=== PATIENT | female | born 1955 | race Caucasian/White ===

== ENCOUNTER 2016-09-20 10:59 | Day surgery (SDC) | payer BC ==
[~2016-09-20 10:59] MED LIST: RINGERS SOLUTION,LACTATED 1,000 ML IV PRN
--- OUTSIDE RECORDS SUMMARY | 2016-09-20 11:46 | XMS REPORT | Continuity of Care Document ---
:1955 Author Organization [facility] Address Unavailable [place] [id number] Care Team Providers Name Role Phone Unavailable Primary Care Provider Unavailable Source Comments This disclosure is being made pursuant to the [employer] program and maynot contain all information available regarding this patient.[facility] Active Allergies and Adverse Reactions No Known Allergies Current Medications Be aware that medications may not be up to date as of this document. Alwaysverify current medications with the patient. Prescription Sig. Disp. Refills Start Date End Date Status buPROPion (WELLBUTRIN) 75 Take 75 mg by mouth 0 08/05/2016 Active MG tablet 2 (two) times daily. meloxicam (MOBIC) 15 MG Take 1 tablet by 0 09/04/2016 Active tablet mouth daily. rosuvastatin (CRESTOR) 20 Take 20 mg by mouth Active MG tablet daily. Active Problems Problem Noted Date COPD (chronic obstructive pulmonary disease) (HCC) 09/07/2016 Most Recent Encounters Date Type Specialty Providers Description 09/07/2016 Abstract Family Medicine Coreen Stock, RN Social History Tobacco Use Types Packs/Day Years Used Date Never Assessed Plan of Care Date Type Specialty Providers Description 09/28/2016 Appointment Family Medicine Anish Eller Q, DO [address] [place] [address] [phone] (Fax) Health Maintenance Due Date Last Done Comments Pneumococcal Medium Risk 19-64 yo (1 of 1 - PPSV23) 1973 Tetanus/Pertussis (1 - Tdap) 1973 Pap Smear 10/16/1975 Colonoscopy 2004 Mammogram 2004 Well Adult Visit 2004 Zoster Vaccine 60+ 2014 Influenza Immunization (#1) 2015 Results from Last 3 Months Not on file
[2016-09-20] MEDS ORDERED: RINGERS SOLUTION,LACTATED 1,000 ML IV ONE (14:00)
[2016-09-20 14:53] VITALS: BP 140/85
[2016-09-20] MEDS ORDERED: RINGERS SOLUTION,LACTATED 1,000 ML IV PRN (14:54)
--- NOTE | 2016-09-20 19:25 | OR ---
Operative Report - Dictated Report Narrative: OPERATIVE REPORT DATE OF OPERATION: 09/20/2016 PREOPERATIVE DIAGNOSIS: No recent dedicated colon studies POSTOPERATIVE DIAGNOSIS: Severe diverticulosis OPERATION: Colonoscopy SURGEON: Tae Tse MD ANESTHESIA: SHAHEED Wheeler CRNA INDICATIONS FOR PROCEDURE: The patient is a 60-year-old female referred by Dr. Prakash. She was told she had a polyp on her first colon exam in 1999. She had significant diverticulosis but no polyps on a repeat exam in 2006. She has a tendency to constipation and is using a combination of fiber and MiraLAX. FINDINGS: Severe diverticulosis NARRATIVE OF PROCEDURE: The patient was identified in the holding area, and prior to the administration of anesthetic, a multidisciplinary timeout was observed. With the patient in the left lateral position and after the administration of intravenous sedation, the perineum was inspected. There was no evidence of pilonidal disease or skin breakdown. The external appearance of the anus was normal. Sphincter tone was good. The flexible fiberoptic colonoscope was inserted into the rectum which was insufflated with air. The rectal mucosa and submucosal vascular pattern appeared normal, the prep was seen to be complete. The scope was advanced through the sigmoid colon which contained numerous large non-impacted noninflamed diverticular openings. The scope was advanced up the descending colon, and around the splenic flexure where the triangular haustral architecture of the transverse colon was seen. The scope was advanced across the transverse colon, around the hepatic flexure to the cecum, where the confluence of tenia and the ileocecal valve were identified. The mucosa at this level appeared normal. The scope was then slowly withdrawn in a circular fashion so that all aspects of colonic mucosa were inspected. The colon was somewhat capacious and character and redundant in course requiring use of standard reduction maneuvers to reach the cecum. The haustral architecture appeared well preserved throughout with no evidence of external compression. The mucosa and submucosal vascular pattern appeared normal, specifically there was no gross evidence to suggest colitis or inflammatory bowel disease and no AV malformations were seen. The diverticulosis was pancolonic however primarily confined to the sigmoid colon and severe in degree in that locale. No polyps were encountered. The scope was gradually withdrawn to the level of the rectum. As much insufflated air as possible was removed. The scope was withdrawn from the patient and the procedure terminated. The patient tolerated the anesthetic and procedure well without complication and was transferred back to the ambulatory surgery area awake and in stable condition. The patient remained stable throughout a period of postoperative observation. She denied abdominal discomfort, was able to tolerate by mouth intake, and was up without assistance. I shared the operative findings with the patient and she was given copies of the photographs which appear in the medical record. She was discharged home with instructions not to engage in hazardous activity today , but may resume normal activity tomorrow, and advance diet as tolerated. She is to continue those medications as listed in the history and physical exam. RECOMMENDATION: A pamphlet on diverticular disease was reviewed with her and given to her. She is to continue titration of Benefiber and MiraLAX. Colon surveillance in 10 years depending upon findings and symptoms Reviewed and electronically signed
== END 2016-09-20 11:00 | disposition home or self-care (01) ==
LOC: AMB 10:59
PROVIDERS: ATTEND Surgery
PROC: 0DJD8ZZ Inspection of Lower Intestinal Tract, Via Natural or Artificial Opening Endoscopic (ICD-10-PCS; principal; 2016-09-20 13:35)
DX: Z12.11 Encounter for screening for malignant neoplasm of colon (principal); K57.30 Diverticulosis of large intestine without perforation or abscess without bleeding; E78.00 Pure hypercholesterolemia, unspecified; F17.210 Nicotine dependence, cigarettes, uncomplicated; Z68.22 Body mass index [BMI] 22.0-22.9, adult